=== PATIENT | male | born 1945 | race Caucasian/White ===

== ENCOUNTER 2017-09-01 13:08 | Inpatient (IN) | payer OTHER, MEDICARE ==
[~2017-09-01] VITALS: Ht 165.1 cm; Wt 77.5 kg
[~2017-09-01 13:08] MED LIST: ASPIRIN81 M2 PO; ATORVASTATIN CA80 MG PO; CILOSTAZOL50 MG PO; ENALAPRIL-HCTZ1 EACH PO; GEMFIBROZIL600 MG PO; GLUCOPHAGE500 MG PO; LANTUS 10100 UNITS/ SC; LEVAQUIN500 MG PO; METOPROLOL TAR100 MG PO; METOPROLOL TART50 MG PO; ROCEPHIN2 GM/50 ML IV
[2017-09-01 14:13] LABS: BASOPHIL (%) 0.3 % (0-1); EOSINOPHIL (%) 1.3 % (0-5); EOSINOPHIL COUNT 0.1 K/uL (0-0.3); HEMATOCRIT 49.5 % (38.0-50.0); HEMOGLOBIN 16.6 G/DL (12.5-16.6); IMMATURE GRANULOCYTE (%) 0.5 % (0.0-0.7); LYMPHOCYTE (%) 23.1 % (15-42); LYMPHOCYTE COUNT 2.5 K/uL (1.0-2.8); MCHC 33.5 G/DL (30.0-36.0); MCV 86.5 FL (86-99); MONOCYTE (%) 6.4 % (3-12); MONOCYTE COUNT 0.7 K/uL (0-0.8); NEUTROPHIL (%) 68.4 % (45-76); NEUTROPHIL COUNT 7.5 K/uL (1.8-6.4); PLATELET COUNT 263 K/uL (156-360); RBC DIS.WIDTH-CV 13.4 % (11.8-14.6); RBC DIS.WIDTH-SD 42.2 % (39-53); RED BLOOD COUNT 5.72 M/uL (4.00-5.50); WHITE BLOOD COUNT 10.9 K/uL (4.1-10.2)
[2017-09-01 14:21] LABS: CHLORIDE 104 mEq/L (99-109); POTASSIUM 3.9 mEq/L (3.7-5.4); SODIUM 139 mEq/L (136-147)
[2017-09-01 14:23] LABS: GLUCOSE 114 mg/dL (70-99)
[2017-09-01 14:27] LABS: CREATININE 1.3 mg/dL (0.6-1.3); GFR ESTIMATE (CALCULATED) 58 mL/min/ (58.99-99999)
[2017-09-01 14:28] LABS: UREA NITROGEN (BUN) 33 mg/dL (9-23)
[2017-09-01 14:32] LABS: INTER. NORMALIZED RATIO 1.1
[2017-09-01 14:35] LABS: PTT 35.3 SEC (25-37); TROP-I INTERPRETATION NEGATIVE; TROPONIN-I < 0.01 ng/mL (0.0-0.30)
[2017-09-01 16:19] LABS: APPEARANCE CLEAR ((CLEAR)); BILIRUBIN NEGATIVE; BLOOD NEGATIVE; COLOR YELLOW ((YELLOW)); GLUCOSE (STRIP) NEGATIVE; KETONES 20; LEUKOCYTES NEGATIVE; NITRITE NEGATIVE; PROTEIN (STRIP) NEGATIVE; SPECIFIC GRAVITY 1.027 (1.000-1.030); UCUL ADDED? NO; UROBILINOGEN 0.2 MG/DL (0.2-1.0)
[2017-09-01] MEDS ORDERED: AMLODIPINE BESY10 MG PO (22:29)
[2017-09-02] VITALS (8 sets, daily range): BP systolic 131–171; BP diastolic 56–86
[2017-09-02 05:46] LABS: HEMATOCRIT 46.5 % (38.0-50.0); HEMOGLOBIN 15.3 G/DL (12.5-16.6); MCH 28.5 PG (29.0-34.0); MCHC 32.9 G/DL (30.0-36.0); MCV 86.6 FL (86-99); PLATELET COUNT 266 K/uL (156-360); RBC DIS.WIDTH-CV 13.3 % (11.8-14.6); RBC DIS.WIDTH-SD 41.9 % (39-53); RED BLOOD COUNT 5.37 M/uL (4.00-5.50); WHITE BLOOD COUNT 9.6 K/uL (4.1-10.2)
[2017-09-02 06:18] LABS: CHLORIDE 103 MEQ/L (99-109); CREATININE 1.2 MG/DL (0.6-1.3); GFR ESTIMATE (CALCULATED) > 59 mL/min/ (58.99-99999); SODIUM 141 MEQ/L (136-147); UREA NITROGEN (BUN) 27 mg/dL (9-23)
[2017-09-02 06:22] LABS: GLUCOSE 82 mg/dL (70-99)
[2017-09-03 05:58] LABS: CHLORIDE 103 MEQ/L (99-109); CREATININE 1.3 MG/DL (0.6-1.3); GFR ESTIMATE (CALCULATED) 58 mL/min/ (58.99-99999); GLUCOSE 91 mg/dL (70-99); POTASSIUM 3.8 MEQ/L (3.7-5.4); SODIUM 141 MEQ/L (136-147); UREA NITROGEN (BUN) 29 mg/dL (9-23)
[2017-09-03 09:10] VITALS: BP 142/70
[2017-09-03 11:20] VITALS: BP 127/65
[2017-09-03 17:05] LABS: APPEARANCE CLEAR/COLORLESS; CSF TUBE NUMBER TUBE #3; RED CELL COUNT 0 /MM^3 (0-1); WHITE CELL COUNT 2 /MM^3 (0-5)
[2017-09-03 17:06] LABS: CSF EOSINOPHILS ND % (0-25); MONONUCLEAR WBC'S ND % (50-90); POLYNUCLEAR WBC'S ND % (0-3)
[2017-09-03 17:08] LABS: CSF PROTEIN 179 mg/dL (15-45)
[2017-09-03 17:13] LABS: GLUCOSE, CSF 92 mg/dL (40-80)
[2017-09-03 19:26] VITALS: BP 140/66
[2017-09-04 00:50] VITALS: BP 136/70
[2017-09-04 04:30] VITALS: BP 154/68
[2017-09-04 05:30] LABS: HEMATOCRIT 47.4 % (38.0-50.0); HEMOGLOBIN 15.7 G/DL (12.5-16.6); MCH 28.8 PG (29.0-34.0); MCHC 33.1 G/DL (30.0-36.0); MCV 86.8 FL (86-99); PLATELET COUNT 261 K/uL (156-360); RBC DIS.WIDTH-CV 13.5 % (11.8-14.6); RBC DIS.WIDTH-SD 41.8 % (39-53); RED BLOOD COUNT 5.46 M/uL (4.00-5.50); WHITE BLOOD COUNT 7.4 K/uL (4.1-10.2)
[2017-09-04 05:55] LABS: CHLORIDE 101 MEQ/L (99-109); CREATININE 1.2 MG/DL (0.6-1.3); GFR ESTIMATE (CALCULATED) > 59 mL/min/ (58.99-99999); GLUCOSE 127 mg/dL (70-99); POTASSIUM 3.7 MEQ/L (3.7-5.4); SODIUM 139 MEQ/L (136-147); UREA NITROGEN (BUN) 31 mg/dL (9-23)
[2017-09-04 08:38] VITALS: BP 160/77
[2017-09-04 11:37] VITALS: BP 130/67
[2017-09-04 15:50] VITALS: BP 131/64
[2017-09-04 19:00] VITALS: BP 146/69
[2017-09-05 00:55] VITALS: BP 138/77
[2017-09-05 04:08] VITALS: BP 143/81
[2017-09-05 07:50] VITALS: BP 141/74
[2017-09-05] MEDS ORDERED: LOPRESSOR25 MG PO (11:10)
[2017-09-05] MEDS ORDERED: LEVEMIR100 UNIT/2 SC (11:27)
[2017-09-05 12:07] VITALS: BP 130/64
[2017-09-05 12:17] VITALS: BP 137/79
== END 2017-09-05 14:12 | disposition home health service (06) | DRG 57 ==
LOC: EME 13:08 → ENRESERV 22:21 → 5WEST 22:21 → EDOF 22:21 → ENRESERV 22:33 → 5WEST 09-02 00:04
PROVIDERS: Emergency Medicine; Hospitalist; Physician Assistant
DX: G91.2 (Idiopathic) normal pressure hydrocephalus (principal); R27.0 Ataxia, unspecified; E11.649 Type 2 diabetes mellitus with hypoglycemia without coma; E11.69 Type 2 diabetes mellitus with other specified complication; I25.119 Atherosclerotic heart disease of native coronary artery with unspecified angina pectoris; E11.42 Type 2 diabetes mellitus with diabetic polyneuropathy; I10 Essential (primary) hypertension; N39.46 Mixed incontinence; E78.2 Mixed hyperlipidemia; K21.0 Gastro-esophageal reflux disease with esophagitis; M47.812 Spondylosis without myelopathy or radiculopathy, cervical region; M25.511 Pain in right shoulder; M81.0 Age-related osteoporosis without current pathological fracture; M25.512 Pain in left shoulder; I25.2 Old myocardial infarction; Z85.46 Personal history of malignant neoplasm of prostate; Z68.28 Body mass index [BMI] 28.0-28.9, adult; Z90.79 Acquired absence of other genital organ(s); Z90.49 Acquired absence of other specified parts of digestive tract; Z95.1 Presence of aortocoronary bypass graft; Z79.4 Long term (current) use of insulin; Z79.82 Long term (current) use of aspirin; Z80.0 Family history of malignant neoplasm of digestive organs; Z89.412 Acquired absence of left great toe
CPT/HCPCS: 62270; 70450; 71010; 71275; 72125; 73030; 77003; 80048; 81003; 82607; 82945; 82948; 84157; 84484; 85025; 85027; 85610; 85730; 87070; 87205; 87502; 88108; 89051; 93005; 97530 GP; 99281; 99285; G0103; G0378; G8978 GP CK; G8979 GP CI; J1650; J1815; J7030

== ENCOUNTER 2017-09-06 22:14 | Inpatient (IN) | payer OTHER, MEDICARE ==
[~2017-09-06] VITALS: Ht 165.1 cm; Wt 76.3 kg
[~2017-09-06 22:14] MED LIST changes: +AMLODIPINE BESY10 MG PO; +LEVEMIR100 UNIT/2 SC; +LOPRESSOR25 MG PO
[2017-09-06 23:49] LABS: BASOPHIL (%) 0.3 % (0-1); EOSINOPHIL (%) 0.7 % (0-5); EOSINOPHIL COUNT 0.1 K/uL (0-0.3); HEMATOCRIT 44.6 % (38.0-50.0); HEMOGLOBIN 15.6 G/DL (12.5-16.6); IMMATURE GRANULOCYTE (%) 0.3 % (0.0-0.7); LYMPHOCYTE (%) 21.4 % (15-42); LYMPHOCYTE COUNT 2.3 K/uL (1.0-2.8); MCH 29.7 PG (29.0-34.0); MCV 84.8 FL (86-99); MONOCYTE (%) 6.5 % (3-12); MONOCYTE COUNT 0.7 K/uL (0-0.8); NEUTROPHIL (%) 70.8 % (45-76); NEUTROPHIL COUNT 7.5 K/uL (1.8-6.4); PLATELET COUNT 276 K/uL (156-360); RBC DIS.WIDTH-CV 13.2 % (11.8-14.6); RBC DIS.WIDTH-SD 40.7 % (39-53); RED BLOOD COUNT 5.26 M/uL (4.00-5.50); WHITE BLOOD COUNT 10.6 K/uL (4.1-10.2)
[2017-09-07] LABS: CHLORIDE 101 mEq/L (99-109); POTASSIUM 3.5 mEq/L (3.7-5.4); SODIUM 136 mEq/L (136-147)
[2017-09-07 00:01] LABS: GLUCOSE 170 mg/dL (70-99)
[2017-09-07 00:05] LABS: CREATININE 1.2 mg/dL (0.6-1.3); GFR ESTIMATE (CALCULATED) > 59 mL/min/ (58.99-99999)
[2017-09-07 00:06] LABS: UREA NITROGEN (BUN) 36 mg/dL (9-23)
[2017-09-07 00:11] LABS: TROP-I INTERPRETATION NEGATIVE; TROPONIN-I 0.01 ng/mL (0.0-0.30)
[2017-09-07 03:35] VITALS: BP 145/76
[2017-09-07 08:00] VITALS: BP 118/65
[2017-09-07 08:31] LABS: HEMATOCRIT 43.5 % (38.0-50.0); HEMOGLOBIN 14.8 G/DL (12.5-16.6); MCH 29.1 PG (29.0-34.0); MCV 85.6 FL (86-99); PLATELET COUNT 268 K/uL (156-360); RBC DIS.WIDTH-CV 13.2 % (11.8-14.6); RBC DIS.WIDTH-SD 41.1 % (39-53); RED BLOOD COUNT 5.08 M/uL (4.00-5.50); WHITE BLOOD COUNT 9.4 K/uL (4.1-10.2)
[2017-09-07 08:51] LABS: CHLORIDE 103 MEQ/L (99-109); POTASSIUM 3.6 MEQ/L (3.7-5.4); SODIUM 140 MEQ/L (136-147)
[2017-09-07 09:06] LABS: CREATININE 1.1 MG/DL (0.6-1.3); GFR ESTIMATE (CALCULATED) > 59 mL/min/ (58.99-99999); UREA NITROGEN (BUN) 28 mg/dL (9-23)
[2017-09-07 09:07] LABS: GLUCOSE 113 mg/dL (70-99)
[2017-09-07 12:00] VITALS: BP 145/80; BP 164/69
[2017-09-07 16:00] VITALS: BP 145/71
[2017-09-07 19:25] VITALS: BP 137/62
[2017-09-07 23:45] VITALS: BP 118/58
[2017-09-08 03:48] VITALS: BP 133/71
[2017-09-08 06:39] LABS: HEMATOCRIT 44.2 % (38.0-50.0); HEMOGLOBIN 14.9 G/DL (12.5-16.6); MCHC 33.7 G/DL (30.0-36.0); MCV 86.2 FL (86-99); PLATELET COUNT 294 K/uL (156-360); RBC DIS.WIDTH-CV 13.2 % (11.8-14.6); RBC DIS.WIDTH-SD 40.7 % (39-53); RED BLOOD COUNT 5.13 M/uL (4.00-5.50); WHITE BLOOD COUNT 7.8 K/uL (4.1-10.2)
[2017-09-08 07:10] LABS: CHLORIDE 100 MEQ/L (99-109); CREATININE 1.1 MG/DL (0.6-1.3); GFR ESTIMATE (CALCULATED) > 59 mL/min/ (58.99-99999); GLUCOSE 102 mg/dL (70-99); SODIUM 138 MEQ/L (136-147); UREA NITROGEN (BUN) 24 mg/dL (9-23)
[2017-09-08 08:14] VITALS: BP 179/77
[2017-09-08 12:17] VITALS: BP 112/67
[2017-09-08] MEDS ORDERED: LANTUS 3 M100 UNITS1 SC (14:31)
[2017-09-08 16:14] VITALS: BP 125/67
[2017-09-08 19:14] VITALS: BP 123/60
[2017-09-08 23:29] VITALS: BP 121/64
[2017-09-09 03:39] VITALS: BP 111/64
[2017-09-09 07:01] LABS: BASOPHIL (%) 0.5 % (0-1); EOSINOPHIL (%) 1.8 % (0-5); EOSINOPHIL COUNT 0.1 K/uL (0-0.3); HEMATOCRIT 43.8 % (38.0-50.0); HEMOGLOBIN 14.8 G/DL (12.5-16.6); IMMATURE GRANULOCYTE (%) 0.4 % (0.0-0.7); LYMPHOCYTE (%) 35.7 % (15-42); LYMPHOCYTE COUNT 2.8 K/uL (1.0-2.8); MCH 28.8 PG (29.0-34.0); MCHC 33.8 G/DL (30.0-36.0); MCV 85.4 FL (86-99); MONOCYTE (%) 9.4 % (3-12); MONOCYTE COUNT 0.7 K/uL (0-0.8); NEUTROPHIL (%) 52.2 % (45-76); NEUTROPHIL COUNT 4.1 K/uL (1.8-6.4); PLATELET COUNT 299 K/uL (156-360); RBC DIS.WIDTH-CV 12.8 % (11.8-14.6); RBC DIS.WIDTH-SD 39.6 % (39-53); RED BLOOD COUNT 5.13 M/uL (4.00-5.50); WHITE BLOOD COUNT 7.8 K/uL (4.1-10.2)
[2017-09-09 07:22] LABS: CHLORIDE 98 MEQ/L (99-109); CREATININE 1.1 MG/DL (0.6-1.3); GFR ESTIMATE (CALCULATED) > 59 mL/min/ (58.99-99999); GLUCOSE 122 mg/dL (70-99); MAGNESIUM 1.7 mg/dl (1.3-2.7); POTASSIUM 3.7 MEQ/L (3.7-5.4); SODIUM 136 MEQ/L (136-147); UREA NITROGEN (BUN) 26 mg/dL (9-23)
[2017-09-09 07:44] VITALS: BP 109/53
[2017-09-09 12:05] VITALS: BP 109/53
[2017-09-09 16:10] VITALS: BP 136/63
[2017-09-09 20:01] VITALS: BP 137/61
[2017-09-10] VITALS (12 sets, daily range): BP systolic 111–155; BP diastolic 52–75
[2017-09-10 07:38] LABS: BASOPHIL (%) 0.1 % (0-1); EOSINOPHIL (%) 0 % (0-5); HEMOGLOBIN 15.6 G/DL (12.5-16.6); IMMATURE GRANULOCYTE (%) 0.4 % (0.0-0.7); LYMPHOCYTE (%) 15.6 % (15-42); LYMPHOCYTE COUNT 1.1 K/uL (1.0-2.8); MCH 28.9 PG (29.0-34.0); MCHC 33.9 G/DL (30.0-36.0); MCV 85.2 FL (86-99); MONOCYTE (%) 2.1 % (3-12); MONOCYTE COUNT 0.2 K/uL (0-0.8); NEUTROPHIL (%) 81.8 % (45-76); NEUTROPHIL COUNT 5.8 K/uL (1.8-6.4); PLATELET COUNT 327 K/uL (156-360); RBC DIS.WIDTH-SD 39.6 % (39-53); WHITE BLOOD COUNT 7.1 K/uL (4.1-10.2)
[2017-09-10 07:50] LABS: CHLORIDE 97 MEQ/L (99-109); CREATININE 1.1 MG/DL (0.6-1.3); GFR ESTIMATE (CALCULATED) > 59 mL/min/ (58.99-99999); GLUCOSE 157 mg/dL (70-99); POTASSIUM 4.5 MEQ/L (3.7-5.4); SODIUM 136 MEQ/L (136-147); UREA NITROGEN (BUN) 27 mg/dL (9-23)
[2017-09-10 22:16] LABS: TROP-I INTERPRETATION NEGATIVE; TROPONIN-I < 0.01 ng/mL (0.0-0.30)
[2017-09-11] VITALS (24 sets, daily range): BP systolic 94–147; BP diastolic 50–72
[2017-09-11 06:26] LABS: CHLORIDE 97 MEQ/L (99-109); CREATININE 1.5 MG/DL (0.6-1.3); GFR ESTIMATE (CALCULATED) 49 mL/min/ (58.99-99999); GLUCOSE 161 mg/dL (70-99); POTASSIUM 4.1 MEQ/L (3.7-5.4); SODIUM 133 MEQ/L (136-147); UREA NITROGEN (BUN) 44 mg/dL (9-23)
[2017-09-12] VITALS (12 sets, daily range): BP systolic 115–157; BP diastolic 55–76
[2017-09-12 04:54] LABS: CHLORIDE 104 mEq/L (99-109); POTASSIUM 4.2 mEq/L (3.7-5.4); SODIUM 134 mEq/L (136-147)
[2017-09-12 04:56] LABS: GLUCOSE 157 mg/dL (70-99)
[2017-09-12 05:00] LABS: CREATININE 1.6 mg/dL (0.6-1.3); GFR ESTIMATE (CALCULATED) 46 mL/min/ (58.99-99999)
[2017-09-12 05:01] LABS: UREA NITROGEN (BUN) 47 mg/dL (9-23)
[2017-09-13] VITALS (7 sets, daily range): BP systolic 135–179; BP diastolic 63–89
[2017-09-13 04:23] LABS: HEMATOCRIT 36.8 % (38.0-50.0); HEMOGLOBIN 12.7 G/DL (12.5-16.6); MCH 29.7 PG (29.0-34.0); MCHC 34.5 G/DL (30.0-36.0); PLATELET COUNT 270 K/uL (156-360); RBC DIS.WIDTH-CV 13.3 % (11.8-14.6); RBC DIS.WIDTH-SD 41.2 % (39-53); RED BLOOD COUNT 4.28 M/uL (4.00-5.50); WHITE BLOOD COUNT 14.9 K/uL (4.1-10.2)
[2017-09-14] VITALS (23 sets, daily range): BP systolic 146–180; BP diastolic 64–88
[2017-09-15] VITALS (17 sets, daily range): BP systolic 129–161; BP diastolic 56–78
[2017-09-16] VITALS (16 sets, daily range): BP systolic 117–159; BP diastolic 58–76
[2017-09-17] VITALS (7 sets, daily range): BP systolic 141–172; BP diastolic 66–81
[2017-09-18 03:33] VITALS: BP 134/65
[2017-09-18 08:30] VITALS: BP 150/70
[2017-09-18 12:09] VITALS: BP 137/65
[2017-09-18 16:00] VITALS: BP 137/70
[2017-09-18 19:31] VITALS: BP 150/70
[2017-09-19] VITALS (7 sets, daily range): BP systolic 126–156; BP diastolic 62–76
[2017-09-20 04:02] VITALS: BP 127/72
[2017-09-20 07:48] LABS: CHLORIDE 93 MEQ/L (99-109); CREATININE 0.8 MG/DL (0.6-1.3); GFR ESTIMATE (CALCULATED) > 59 mL/min/ (58.99-99999); GLUCOSE 223 mg/dL (70-99); POTASSIUM 4.2 MEQ/L (3.7-5.4); SODIUM 134 MEQ/L (136-147); UREA NITROGEN (BUN) 41 mg/dL (9-23)
[2017-09-20 08:30] VITALS: BP 167/75
[2017-09-20 12:34] VITALS: BP 133/63
[2017-09-20 16:30] VITALS: BP 124/82
[2017-09-20 23:54] VITALS: BP 134/63
[2017-09-21 05:13] VITALS: BP 131/68
[2017-09-21 07:40] VITALS: BP 151/72
[2017-09-21 12:29] VITALS: BP 153/74
[2017-09-21 19:56] VITALS: BP 142/64
[2017-09-21 23:31] VITALS: BP 108/56
[2017-09-22 03:58] VITALS: BP 128/65
[2017-09-22 06:20] LABS: CHLORIDE 94 MEQ/L (99-109); GFR ESTIMATE (CALCULATED) > 59 mL/min/ (58.99-99999); GLUCOSE 242 mg/dL (70-99); POTASSIUM 4.8 MEQ/L (3.7-5.4); SODIUM 130 MEQ/L (136-147); UREA NITROGEN (BUN) 32 mg/dL (9-23)
[2017-09-22 07:50] VITALS: BP 116/58
[2017-09-22] MEDS ORDERED: ENDOCET 5-3251 EACH PO (10:07)
[2017-09-22] MEDS ORDERED: BACLOFEN10 MG PO (10:07)
[2017-09-22 11:05] VITALS: BP 132/64
== END 2017-09-22 13:39 | DRG 29 ==
LOC: EME 22:14 → 5SOUTH 09-07 02:03 → 4WEST 09-07 02:03 → 2SOUTH 09-07 02:03 → EDOF 09-07 02:03 → ENRESERV 09-07 02:08 → 5SOUTH 09-07 03:15 → ENRESERV 09-10 13:27 → 5SOUTH 09-10 14:10 → ENRESERV 09-10 14:12 → 4WEST 09-10 14:19 → ENRESERV 09-11 13:13 → CANRESERV 09-11 14:59 → 4WEST 09-11 19:01 → 2SOUTH 09-13 09:03 → ENRESERV 09-13 21:30 → 4WEST 09-13 23:08 → ENRESERV 09-16 17:19 → 3EAST 09-16 20:45
PROVIDERS: Anesthesiology; Emergency Medicine; Hospitalist; Internal Medicine; Internal Medicine Critical Care Medicine; Neurological Surgery; Physician Assistant
DX: G91.2 (Idiopathic) normal pressure hydrocephalus (principal); I25.10 Atherosclerotic heart disease of native coronary artery without angina pectoris; R26.9 Unspecified abnormalities of gait and mobility; E78.2 Mixed hyperlipidemia; R27.0 Ataxia, unspecified; E11.42 Type 2 diabetes mellitus with diabetic polyneuropathy; N39.3 Stress incontinence (female) (male); K21.9 Gastro-esophageal reflux disease without esophagitis; E11.51 Type 2 diabetes mellitus with diabetic peripheral angiopathy without gangrene; M25.511 Pain in right shoulder; M25.512 Pain in left shoulder; Z79.4 Long term (current) use of insulin; Z79.82 Long term (current) use of aspirin; I25.2 Old myocardial infarction; Z95.1 Presence of aortocoronary bypass graft; Z90.79 Acquired absence of other genital organ(s); Z85.46 Personal history of malignant neoplasm of prostate; Z80.0 Family history of malignant neoplasm of digestive organs; Z89.412 Acquired absence of left great toe; F43.21 Adjustment disorder with depressed mood; R00.1 Bradycardia, unspecified; Z79.899 Other long term (current) drug therapy; Z90.49 Acquired absence of other specified parts of digestive tract; M48.02 Spinal stenosis, cervical region; T85.192A Other mechanical complication of implanted electronic neurostimulator of spinal cord electrode (lead), initial encounter; G95.9 Disease of spinal cord, unspecified
CPT/HCPCS: 62302; 72020; 72040; 72126; 72156; 72170; 74018; 74176; 76000; 80048; 82948; 83735; 84484; 84520; 85025; 85027; 85651; 86140; 86850; 86900; 86901; 87641; 88305; 92523 GN; 93005; 94799; 97530 GO; 97530 GP; 99281; 99285; C1713; J0131; J0330; J0461; J0690; J1100; J1170; J1644; J1815; J2250; J2270; J2405; J2710; J2765; J3010; J7030; J7042; J8540

== ENCOUNTER 2017-10-21 15:13 | Inpatient (IN) | payer OTHER, MEDICARE ==
[~2017-10-21] VITALS: Ht 165.1 cm; Wt 75.7 kg
[~2017-10-21 15:13] MED LIST changes: +BACLOFEN10 MG PO; +ENDOCET 5-3251 EACH PO; +LANTUS 3 M100 UNITS1 SC
[2017-10-21 16:04] LABS: BASOPHIL (%) 0.2 % (0-1); EOSINOPHIL (%) 0.2 % (0-5); HEMATOCRIT 35.9 % (38.0-50.0); HEMOGLOBIN 12.7 G/DL (12.5-16.6); IMMATURE GRANULOCYTE (%) 1.5 % (0.0-0.7); LYMPHOCYTE (%) 12.1 % (15-42); LYMPHOCYTE COUNT 1.7 K/uL (1.0-2.8); MCHC 35.4 G/DL (30.0-36.0); MCV 84.9 FL (86-99); MONOCYTE (%) 11.1 % (3-12); MONOCYTE COUNT 1.5 K/uL (0-0.8); NEUTROPHIL (%) 74.9 % (45-76); NEUTROPHIL COUNT 10.3 K/uL (1.8-6.4); PLATELET COUNT 478 K/uL (156-360); RBC DIS.WIDTH-CV 14.6 % (11.8-14.6); RBC DIS.WIDTH-SD 45.2 % (39-53); RED BLOOD COUNT 4.23 M/uL (4.00-5.50); WHITE BLOOD COUNT 13.7 K/uL (4.1-10.2)
[2017-10-21 16:13] LABS: INTER. NORMALIZED RATIO 1.2
[2017-10-21 16:15] LABS: PTT 28.6 SEC (25-37)
[2017-10-21 16:32] LABS: TROP-I INTERPRETATION NEGATIVE; TROPONIN-I < 0.01 ng/mL (0.0-0.30)
[2017-10-21 16:34] LABS: CK-MB 6.3 ng/mL (0.0-4.9)
[2017-10-21 17:31] LABS: ALBUMIN 3.5 G/DL (3.2-4.8); ALKALINE PHOSPHATASE 90 IU/L (3-129); ALT (GPT) 30 IU/L (3-49); AST (GOT) 26 IU/L (2-34); CHLORIDE 89 MEQ/L (99-109); CKMB RELATIVE INDEX 0.9 (0.0-3.9); CREATINE KINASE 737 IU/L (1-294); CREATININE 1.1 MG/DL (0.6-1.3); GFR ESTIMATE (CALCULATED) > 59 mL/min/ (58.99-99999); POTASSIUM 4.4 MEQ/L (3.7-5.4); TOTAL BILIRUBIN 0.5 MG/DL (0.0-1.0); TOTAL CK 737 IU/L (1-294); UREA NITROGEN (BUN) 52 mg/dL (9-23)
[2017-10-21 17:32] LABS: GLUCOSE 231 mg/dL (70-99); SODIUM 118 MEQ/L (136-147)
[2017-10-21 18:18] LABS: APPEARANCE CLOUDY ((CLEAR)); BILIRUBIN NEGATIVE; BLOOD LARGE; COLOR YELLOW ((YELLOW)); GLUCOSE (STRIP) NEGATIVE; KETONES NEGATIVE; LEUKOCYTES LARGE; NITRITE NEGATIVE; PROTEIN (STRIP) 30; SPECIFIC GRAVITY 1.019 (1.000-1.030); UROBILINOGEN 0.2 MG/DL (0.2-1.0)
[2017-10-21 18:27] LABS: BACTERIA RARE /HPF; CALCIUM OXALATE CRYSTALS 2+ /HPF; EPITHELIAL CELLS RARE /HPF; MUCUS TRACE /LPF; RED BLOOD CELLS 40-50 /HPF (0-5); UCUL ADDED? YES; WHITE BLOOD CELLS TNTC /HPF (0-5)
[2017-10-21] MEDS ORDERED: LEXAPRO10 MG PO (20:31)
[2017-10-21] MEDS ORDERED: VITAMIN D31000 UNI2 PO (20:31)
[2017-10-21] MEDS ORDERED: MICROZIDE12.5 M1 PO (20:32)
[2017-10-21] MEDS ORDERED: LEVEMIR100 UNIT/2 SC (20:33)
[2017-10-21] MEDS ORDERED: ZESTRIL10 MG PO (20:34)
[2017-10-21] MEDS ORDERED: LOVENOX40 MG/0.4 SC (20:34)
[2017-10-21] MEDS ORDERED: GLUCOPHAGE500 MG PO (20:35)
[2017-10-21] MEDS ORDERED: PRILOSEC20 MG PO (20:36)
[2017-10-21] MEDS ORDERED: MIRTAZAPINE7.5 MG PO (20:36)
[2017-10-21] MEDS ORDERED: SENNA PLUS TAB1 EACH PO (20:37)
[2017-10-21] MEDS ORDERED: ACIDOPHILUS1 EAC3 PO (20:38)
[2017-10-21] MEDS ORDERED: MUCUS ER600 MG PO (20:39)
[2017-10-21] MEDS ORDERED: MEGACE 40 MG40 MG/ML PO (20:39)
[2017-10-21] MEDS ORDERED: LOPRESSOR25 MG PO (20:40)
[2017-10-21] MEDS ORDERED: ZEASORB-AF70 G1 TP (20:41)
[2017-10-21] MEDS ORDERED: K-DUR10 MEQ PO (20:41)
[2017-10-21] MEDS ORDERED: NEURONTIN100 MG PO (20:42)
[2017-10-21] MEDS ORDERED: NYSTATIN100000 UN1 PO (20:43)
[2017-10-21] MEDS ORDERED: LIORESAL10 MG PO (20:43)
[2017-10-21] MEDS ORDERED: MILK OF MAGN PO (20:44)
[2017-10-21] MEDS ORDERED: DULCOLAX10 MG PR (20:44)
[2017-10-21] MEDS ORDERED: TYLENOL EXTRA500 MG PO (20:44)
[2017-10-21] MEDS ORDERED: PERCOCET 5/31 TABLET PO ×2 (20:45→20:46)
[2017-10-21] MEDS ORDERED: MIRALAX17 GM PO (20:45)
[2017-10-21] MEDS ORDERED: PROMETHAZINE12.5 M1 PO (20:47)
[2017-10-21 23:43] VITALS: BP 135/64
[2017-10-22 01:29] LABS: CHLORIDE 94 mEq/L (99-109); POTASSIUM 4.2 mEq/L (3.7-5.4)
[2017-10-22 01:35] LABS: CREATININE 0.8 mg/dL (0.6-1.3); GFR ESTIMATE (CALCULATED) > 59 mL/min/ (58.99-99999)
[2017-10-22 01:36] LABS: GLUCOSE 110 mg/dL (70-99); SODIUM 125 mEq/L (136-147); UREA NITROGEN (BUN) 38 mg/dL (9-23)
[2017-10-22 03:27] VITALS: BP 110/58
[2017-10-22 06:38] LABS: HEMATOCRIT 35.5 % (38.0-50.0); HEMOGLOBIN 12.4 G/DL (12.5-16.6); MCH 30.2 PG (29.0-34.0); MCHC 34.9 G/DL (30.0-36.0); MCV 86.4 FL (86-99); PLATELET COUNT 418 K/uL (156-360); RBC DIS.WIDTH-SD 47.3 % (39-53); RED BLOOD COUNT 4.11 M/uL (4.00-5.50); WHITE BLOOD COUNT 11.4 K/uL (4.1-10.2)
[2017-10-22 07:15] LABS: CHLORIDE 97 MEQ/L (99-109); CREATININE 0.8 MG/DL (0.6-1.3); GFR ESTIMATE (CALCULATED) > 59 mL/min/ (58.99-99999); GLUCOSE 105 mg/dL (70-99); POTASSIUM 4.1 MEQ/L (3.7-5.4); SODIUM 126 MEQ/L (136-147); UREA NITROGEN (BUN) 34 mg/dL (9-23)
[2017-10-22 08:30] VITALS: BP 122/58
[2017-10-22 09:53] LABS: CHLORIDE 97 MEQ/L (99-109); CREATININE 0.8 MG/DL (0.6-1.3); GFR ESTIMATE (CALCULATED) > 59 mL/min/ (58.99-99999); GLUCOSE 105 mg/dL (70-99); POTASSIUM 4.3 MEQ/L (3.7-5.4); SODIUM 127 MEQ/L (136-147); UREA NITROGEN (BUN) 32 mg/dL (9-23)
[2017-10-22 12:08] VITALS: BP 119/62
[2017-10-22 12:57] LABS: CHLORIDE 97 MEQ/L (99-109); CREATININE 0.7 MG/DL (0.6-1.3); GFR ESTIMATE (CALCULATED) > 59 mL/min/ (58.99-99999); GLUCOSE 143 mg/dL (70-99); POTASSIUM 4.3 MEQ/L (3.7-5.4); SODIUM 126 MEQ/L (136-147); UREA NITROGEN (BUN) 32 mg/dL (9-23)
[2017-10-22 17:20] VITALS: BP 118/55
[2017-10-22 18:08] LABS: CHLORIDE 98 MEQ/L (99-109); CREATININE 0.8 MG/DL (0.6-1.3); GFR ESTIMATE (CALCULATED) > 59 mL/min/ (58.99-99999); GLUCOSE 159 mg/dL (70-99); POTASSIUM 4.4 MEQ/L (3.7-5.4); SODIUM 125 MEQ/L (136-147); UREA NITROGEN (BUN) 30 mg/dL (9-23)
[2017-10-22 20:13] VITALS: BP 123/68
[2017-10-23 03:37] VITALS: BP 117/57
[2017-10-23 05:44] LABS: CHLORIDE 101 MEQ/L (99-109); CREATININE 0.8 MG/DL (0.6-1.3); GFR ESTIMATE (CALCULATED) > 59 mL/min/ (58.99-99999); POTASSIUM 4.2 MEQ/L (3.7-5.4); SODIUM 129 MEQ/L (136-147); UREA NITROGEN (BUN) 27 mg/dL (9-23)
[2017-10-23 05:50] LABS: GLUCOSE 101 mg/dL (70-99)
[2017-10-23 07:42] VITALS: BP 131/63
[2017-10-23 11:27] VITALS: BP 127/64
[2017-10-23 16:30] VITALS: BP 117/57
[2017-10-23 19:45] VITALS: BP 134/66
[2017-10-23 23:17] VITALS: BP 108/58
[2017-10-24 04:22] VITALS: BP 128/62
[2017-10-24 06:15] LABS: CHLORIDE 104 MEQ/L (99-109); CREATININE 0.7 MG/DL (0.6-1.3); GFR ESTIMATE (CALCULATED) > 59 mL/min/ (58.99-99999); GLUCOSE 101 mg/dL (70-99); POTASSIUM 4.5 MEQ/L (3.7-5.4); SODIUM 134 MEQ/L (136-147); UREA NITROGEN (BUN) 21 mg/dL (9-23)
[2017-10-24 07:30] VITALS: BP 146/79
[2017-10-24 12:03] VITALS: BP 150/82
[2017-10-24 14:22] LABS: CREATINE KINASE 127 IU/L (1-294)
[2017-10-24 15:58] VITALS: BP 127/62
[2017-10-24 19:08] LABS: CHLORIDE 103 MEQ/L (99-109); POTASSIUM 4.3 MEQ/L (3.7-5.4); SODIUM 133 MEQ/L (136-147)
[2017-10-24 19:14] LABS: CREATININE 0.7 MG/DL (0.6-1.3); GFR ESTIMATE (CALCULATED) > 59 mL/min/ (58.99-99999); UREA NITROGEN (BUN) 18 mg/dL (9-23)
[2017-10-24 19:20] LABS: GLUCOSE 164 mg/dL (70-99)
[2017-10-24 19:26] VITALS: BP 144/69
[2017-10-24 23:11] VITALS: BP 144/60
[2017-10-25 04:23] VITALS: BP 113/67
[2017-10-25 04:48] LABS: HEMATOCRIT 37.6 % (38.0-50.0); MCH 30.2 PG (29.0-34.0); MCHC 34.6 G/DL (30.0-36.0); MCV 87.4 FL (86-99); PLATELET COUNT 387 K/uL (156-360); RBC DIS.WIDTH-CV 15.4 % (11.8-14.6); RBC DIS.WIDTH-SD 49.3 % (39-53); WHITE BLOOD COUNT 12.3 K/uL (4.1-10.2)
[2017-10-25 06:17] LABS: CHLORIDE 102 MEQ/L (99-109); CREATININE 0.7 MG/DL (0.6-1.3); GFR ESTIMATE (CALCULATED) > 59 mL/min/ (58.99-99999); GLUCOSE 91 mg/dL (70-99); POTASSIUM 4.6 MEQ/L (3.7-5.4); SODIUM 136 MEQ/L (136-147); UREA NITROGEN (BUN) 19 mg/dL (9-23)
[2017-10-25 08:05] VITALS: BP 137/72
[2017-10-25 12:01] VITALS: BP 106/62
[2017-10-25 16:14] VITALS: BP 114/56
[2017-10-25 19:55] VITALS: BP 120/59
[2017-10-26 00:02] VITALS: BP 104/65
[2017-10-26 05:30] LABS: HEMATOCRIT 36.7 % (38.0-50.0); HEMOGLOBIN 12.3 G/DL (12.5-16.6); MCH 29.4 PG (29.0-34.0); MCHC 33.5 G/DL (30.0-36.0); MCV 87.6 FL (86-99); PLATELET COUNT 370 K/uL (156-360); RBC DIS.WIDTH-CV 15.2 % (11.8-14.6); RBC DIS.WIDTH-SD 48.7 % (39-53); RED BLOOD COUNT 4.19 M/uL (4.00-5.50); WHITE BLOOD COUNT 12.2 K/uL (4.1-10.2)
[2017-10-26 06:03] LABS: CHLORIDE 102 MEQ/L (99-109); CREATININE 0.7 MG/DL (0.6-1.3); GFR ESTIMATE (CALCULATED) > 59 mL/min/ (58.99-99999); GLUCOSE 93 mg/dL (70-99); POTASSIUM 4.1 MEQ/L (3.7-5.4); SODIUM 132 MEQ/L (136-147); UREA NITROGEN (BUN) 19 mg/dL (9-23)
[2017-10-26 08:21] VITALS: BP 130/66
[2017-10-26 16:20] VITALS: BP 115/57
[2017-10-26 23:33] VITALS: BP 106/59
[2017-10-27 08:37] VITALS: BP 112/67
[2017-10-27] MEDS ORDERED: CYANOCOBAL1000 MCG/2 SC (12:19)
[2017-10-27] MEDS ORDERED: PERCOCET 5/31 TABLET PO (13:46)
== END 2017-10-27 15:07 | DRG 641 ==
LOC: EME 15:13 → 3EAST 19:37 → EDOF 19:37 → ENRESERV 19:39 → 3EAST 23:09
PROVIDERS: Emergency Medicine; Hospitalist; Internal Medicine; Internal Medicine Nephrology; Physician Assistant
PROC: 0HD6XZZ Extraction of Back Skin, External Approach (ICD-10-PCS; principal; 2017-10-23)
DX: E87.1 Hypo-osmolality and hyponatremia (principal); G82.20 Paraplegia, unspecified; N39.0 Urinary tract infection, site not specified; N17.9 Acute kidney failure, unspecified; M62.82 Rhabdomyolysis; G91.2 (Idiopathic) normal pressure hydrocephalus; T81.89XA Other complications of procedures, not elsewhere classified, initial encounter; T81.31XA Disruption of external operation (surgical) wound, not elsewhere classified, initial encounter; L89.150 Pressure ulcer of sacral region, unstageable; E11.42 Type 2 diabetes mellitus with diabetic polyneuropathy; E78.5 Hyperlipidemia, unspecified; E86.0 Dehydration; E86.1 Hypovolemia; T50.2X5A Adverse effect of carbonic-anhydrase inhibitors, benzothiadiazides and other diuretics, initial encounter; I10 Essential (primary) hypertension; I25.10 Atherosclerotic heart disease of native coronary artery without angina pectoris; K21.9 Gastro-esophageal reflux disease without esophagitis; E78.00 Pure hypercholesterolemia, unspecified; Y92.129 Unspecified place in nursing home as the place of occurrence of the external cause; I25.2 Old myocardial infarction; Z95.1 Presence of aortocoronary bypass graft; Z90.49 Acquired absence of other specified parts of digestive tract; Z90.79 Acquired absence of other genital organ(s); Z85.46 Personal history of malignant neoplasm of prostate; Z79.84 Long term (current) use of oral hypoglycemic drugs; Z80.0 Family history of malignant neoplasm of digestive organs; Z82.49 Family history of ischemic heart disease and other diseases of the circulatory system; Z74.01 Bed confinement status; Z99.3 Dependence on wheelchair
CPT/HCPCS: 70450; 71045; 80048; 80048 91; 80053; 81003; 82550; 82553; 82607; 82948; 83605; 83930; 83935; 84300; 84425 90; 84484; 85025 91; 85027; 85610; 85730; 87040; 87086; 87502; 93005; 99281; 99285; J0696; J1644; J3420; J7030

== ENCOUNTER → 2017-11-06 | Outpatient (CLI) | payer OTHER, MEDICARE ==
[~2017-11-06] MED LIST changes: +ACIDOPHILUS1 EAC3 PO; +CYANOCOBAL1000 MCG/2 SC; +DULCOLAX10 MG PR; +K-DUR10 MEQ PO; +LEXAPRO10 MG PO; +LIORESAL10 MG PO; +LOVENOX40 MG/0.4 SC; +MEGACE 40 MG40 MG/ML PO; +MICROZIDE12.5 M1 PO; +MILK OF MAGN PO; +MIRALAX17 GM PO; +MIRTAZAPINE7.5 MG PO; +MUCUS ER600 MG PO; +NEURONTIN100 MG PO; +NYSTATIN100000 UN1 PO; +PERCOCET 5/31 TABLET PO; +PRILOSEC20 MG PO; +PROMETHAZINE12.5 M1 PO; +SENNA PLUS TAB1 EACH PO; +TYLENOL EXTRA500 MG PO; +VITAMIN D31000 UNI2 PO; +ZEASORB-AF70 G1 TP; +ZESTRIL10 MG PO
== END | disposition home or self-care (01) ==
LOC: RAD 09:00
DX: M50.221 Other cervical disc displacement at C4-C5 level (principal); Z98.890 Other specified postprocedural states
CPT/HCPCS: 72125

== ENCOUNTER 2017-11-14 19:33 | Inpatient (IN) | payer OTHER, MEDICARE ==
[~2017-11-14] VITALS: Ht 165.1 cm; Wt 64.0 kg
[2017-11-14 20:32] LABS: HEMATOCRIT 39.1 % (38.0-50.0); HEMOGLOBIN 13.4 G/DL (12.5-16.6); MCH 30.5 PG (29.0-34.0); MCHC 34.3 G/DL (30.0-36.0); MCV 89.1 FL (86-99); PLATELET COUNT 325 K/uL (156-360); RBC DIS.WIDTH-SD 52.7 % (39-53); RED BLOOD COUNT 4.39 M/uL (4.00-5.50); WHITE BLOOD COUNT 13.9 K/uL (4.1-10.2)
[2017-11-14 20:40] LABS: CHLORIDE 105 mEq/L (99-109); POTASSIUM 4.6 mEq/L (3.7-5.4); SODIUM 140 mEq/L (136-147)
[2017-11-14 20:42] LABS: GLUCOSE 126 mg/dL (70-99)
[2017-11-14 20:44] LABS: BASE EXCESS -0.9 mEq/L (-3 to +3); BICARBONATE 21.6 mEq/L (22-26); CARBOXY HGB 1.2 % (0-5); METHEMOGLOBIN 1.3 % (0-1.5); PCO2 29 mm Hg (35-45); PO2 99 mm Hg (80-100); pH 7.48 (7.35-7.45)
[2017-11-14 20:46] LABS: CREATININE 0.9 mg/dL (0.6-1.3); GFR ESTIMATE (CALCULATED) > 59 mL/min/ (58.99-99999)
[2017-11-14 20:47] LABS: UREA NITROGEN (BUN) 41 mg/dL (9-23)
[2017-11-14 20:55] LABS: COMMENTS - BLOOD GASES A+C+; DEVICE RA; SITE LR
[2017-11-14 20:57] LABS: BASOPHIL (%) 0.2 % (0-1); EOSINOPHIL (%) 0.7 % (0-5); EOSINOPHIL COUNT 0.1 K/uL (0-0.3); LYMPHOCYTE COUNT 2.2 K/uL (1.0-2.8); MONOCYTE (%) 8.6 % (3-12); MONOCYTE COUNT 1.2 K/uL (0-0.8); NEUTROPHIL (%) 73.5 % (45-76); NEUTROPHIL COUNT 10.1 K/uL (1.8-6.4)
[2017-11-14 21:01] LABS: INTER. NORMALIZED RATIO 1.2
[2017-11-14 21:07] LABS: ALBUMIN 3.7 g/dL (3.2-4.8)
[2017-11-14 21:08] LABS: MAGNESIUM 1.6 mg/dL (1.3-2.7)
[2017-11-14 21:10] LABS: TOTAL PROTEIN 6.6 g/dL (6.4-8.3)
[2017-11-14 21:11] LABS: TOTAL BILIRUBIN 0.6 mg/dL (0.0-1.0)
[2017-11-14 21:12] LABS: ALKALINE PHOSPHATASE 108 IU/L (3-129)
[2017-11-14 21:15] LABS: AST (GOT) 36 IU/L (2-34); DIRECT BILIRUBIN 0.3 mg/dL (0.0-0.3)
[2017-11-14 21:16] LABS: ALT (GPT) 31 IU/L (3-49); LIPASE 15 U/L (1.0-51.0)
[2017-11-14 21:22] LABS: TROP-I INTERPRETATION NEGATIVE; TROPONIN-I < 0.01 ng/mL (0.0-0.30)
[2017-11-14] MEDS ORDERED: CYANOCOBAL1000 MCG/2 IM (21:57)
[2017-11-14] MEDS ORDERED: FOLIC ACID1 MG PO (22:03)
[2017-11-14] MEDS ORDERED: MELATONIN1 MG PO (22:05)
[2017-11-14] MEDS ORDERED: OMEPRAZOLE20 M2 PO (22:08)
[2017-11-14] MEDS ORDERED: TRAZODONE HCL50 MG PO (22:21)
[2017-11-14] MEDS ORDERED: ONDANSETRON HCL4 MG PO (22:24)
[2017-11-15 05:08] VITALS: BP 171/79
[2017-11-15 07:10] VITALS: BP 114/65
[2017-11-15 11:34] VITALS: BP 112/63
[2017-11-15 12:07] LABS: APPEARANCE CLOUDY ((CLEAR)); BILIRUBIN NEGATIVE; BLOOD MODERATE; GLUCOSE (STRIP) 50; KETONES NEGATIVE; LEUKOCYTES MODERATE; NITRITE NEGATIVE; PROTEIN (STRIP) 100; SPECIFIC GRAVITY 1.018 (1.000-1.030); UROBILINOGEN 0.2 MG/DL (0.2-1.0)
[2017-11-15 12:12] LABS: COLOR RED ((YELLOW))
[2017-11-15 12:21] LABS: RED BLOOD CELLS TNTC /HPF (0-5)
[2017-11-15 12:23] LABS: UCUL ADDED? YES; WHITE BLOOD CELLS TNTC /HPF (0-5)
[2017-11-15 15:06] VITALS: BP 113/60
[2017-11-15 22:36] VITALS: BP 138/73
[2017-11-16 03:49] VITALS: BP 102/59
[2017-11-16 06:35] LABS: HEMATOCRIT 29.9 % (38.0-50.0); MCH 30.4 PG (29.0-34.0); MCHC 34.1 G/DL (30.0-36.0); MCV 89.3 FL (86-99); PLATELET COUNT 250 K/uL (156-360); RBC DIS.WIDTH-SD 52.8 % (39-53); WHITE BLOOD COUNT 9.6 K/uL (4.1-10.2)
[2017-11-16 06:51] LABS: GFR ESTIMATE (CALCULATED) > 59 mL/min/ (58.99-99999)
[2017-11-16 07:20] LABS: HEMOGLOBIN 10.2 G/DL (12.5-16.6); RED BLOOD COUNT 3.35 M/uL (4.00-5.50)
[2017-11-16 07:33] LABS: CHLORIDE 110 MEQ/L (99-109); CREATININE 0.7 MG/DL (0.6-1.3); GLUCOSE 58 mg/dL (70-99); POTASSIUM 2.8 MEQ/L (3.7-5.4); SODIUM 141 MEQ/L (136-147); UREA NITROGEN (BUN) 18 mg/dL (9-23)
[2017-11-16 08:07] VITALS: BP 142/68
[2017-11-16 11:22] LABS: MAGNESIUM 1.4 mg/dl (1.3-2.7); PHOSPHORUS 2.1 mg/dL (2.5-4.9)
[2017-11-16 11:50] VITALS: BP 124/64
[2017-11-16 12:18] LABS: CHLORIDE 110 MEQ/L (99-109); CREATININE 0.6 MG/DL (0.6-1.3); GFR ESTIMATE (CALCULATED) > 59 mL/min/ (58.99-99999); POTASSIUM 2.8 MEQ/L (3.7-5.4); SODIUM 141 MEQ/L (136-147); UREA NITROGEN (BUN) 15 mg/dL (9-23)
[2017-11-16 12:22] LABS: GLUCOSE 104 mg/dL (70-99)
[2017-11-16 17:21] VITALS: BP 107/59
[2017-11-16 17:51] LABS: CHLORIDE 110 MEQ/L (99-109); CREATININE 0.5 MG/DL (0.6-1.3); GFR ESTIMATE (CALCULATED) > 59 mL/min/ (58.99-99999); GLUCOSE 63 mg/dL (70-99); POTASSIUM 3.6 MEQ/L (3.7-5.4); SODIUM 141 MEQ/L (136-147); UREA NITROGEN (BUN) 14 mg/dL (9-23)
[2017-11-16 19:20] VITALS: BP 107/99
[2017-11-16 23:46] VITALS: BP 142/62
[2017-11-17 04:16] VITALS: BP 124/63
[2017-11-17 05:58] LABS: BASOPHIL (%) 0.4 % (0-1); EOSINOPHIL (%) 2.4 % (0-5); EOSINOPHIL COUNT 0.2 K/uL (0-0.3); HEMATOCRIT 30.5 % (38.0-50.0); IMMATURE GRANULOCYTE (%) 1.1 % (0.0-0.7); LYMPHOCYTE (%) 19.3 % (15-42); LYMPHOCYTE COUNT 1.9 K/uL (1.0-2.8); MCH 29.6 PG (29.0-34.0); MCHC 32.8 G/DL (30.0-36.0); MCV 90.2 FL (86-99); MONOCYTE (%) 7.2 % (3-12); MONOCYTE COUNT 0.7 K/uL (0-0.8); NEUTROPHIL (%) 69.6 % (45-76); NEUTROPHIL COUNT 6.7 K/uL (1.8-6.4); PLATELET COUNT 249 K/uL (156-360); RBC DIS.WIDTH-CV 16.4 % (11.8-14.6); RBC DIS.WIDTH-SD 54.4 % (39-53); RED BLOOD COUNT 3.38 M/uL (4.00-5.50); WHITE BLOOD COUNT 9.6 K/uL (4.1-10.2)
[2017-11-17 06:30] LABS: CHLORIDE 112 MEQ/L (99-109); CREATINE KINASE 114 IU/L (1-294); CREATININE 0.6 MG/DL (0.6-1.3); GFR ESTIMATE (CALCULATED) > 59 mL/min/ (58.99-99999); GLUCOSE 73 mg/dL (70-99); MAGNESIUM 1.5 mg/dl (1.3-2.7); POTASSIUM 3.6 MEQ/L (3.7-5.4); SODIUM 140 MEQ/L (136-147); UREA NITROGEN (BUN) 12 mg/dL (9-23)
[2017-11-17 07:57] VITALS: BP 129/70
[2017-11-17 12:13] VITALS: BP 121/64
[2017-11-17 20:18] VITALS: BP 154/72
[2017-11-17 23:38] VITALS: BP 130/73
[2017-11-18 03:29] VITALS: BP 125/59
[2017-11-18 07:38] VITALS: BP 133/74
[2017-11-18 08:50] LABS: BASOPHIL (%) 0.5 % (0-1); BASOPHIL COUNT 0.1 K/uL (0-0.1); EOSINOPHIL (%) 1.8 % (0-5); EOSINOPHIL COUNT 0.2 K/uL (0-0.3); HEMATOCRIT 32.9 % (38.0-50.0); HEMOGLOBIN 11.2 G/DL (12.5-16.6); IMMATURE GRANULOCYTE (%) 0.6 % (0.0-0.7); LYMPHOCYTE (%) 18.2 % (15-42); LYMPHOCYTE COUNT 1.7 K/uL (1.0-2.8); MCH 30.4 PG (29.0-34.0); MCV 89.2 FL (86-99); MONOCYTE (%) 7.3 % (3-12); MONOCYTE COUNT 0.7 K/uL (0-0.8); NEUTROPHIL (%) 71.6 % (45-76); NEUTROPHIL COUNT 6.8 K/uL (1.8-6.4); PLATELET COUNT 288 K/uL (156-360); RBC DIS.WIDTH-CV 16.4 % (11.8-14.6); RBC DIS.WIDTH-SD 54.6 % (39-53); RED BLOOD COUNT 3.69 M/uL (4.00-5.50); WHITE BLOOD COUNT 9.4 K/uL (4.1-10.2)
[2017-11-18 09:21] LABS: CHLORIDE 112 MEQ/L (99-109); CREATININE 0.6 MG/DL (0.6-1.3); GFR ESTIMATE (CALCULATED) > 59 mL/min/ (58.99-99999); GLUCOSE 87 mg/dL (70-99); POTASSIUM 3.6 MEQ/L (3.7-5.4); SODIUM 142 MEQ/L (136-147); UREA NITROGEN (BUN) 11 mg/dL (9-23)
[2017-11-18 12:10] VITALS: BP 112/69
[2017-11-18] MEDS ORDERED: MAG-OXIDE400 MG PO (12:22)
[2017-11-18] MEDS ORDERED: LEVEMIR100 UNIT/2 SC ×2 (12:22→12:23)
[2017-11-18] MEDS ORDERED: DRONABINOL2.5 MG PO (12:22)
[2017-11-18] MEDS ORDERED: ZYVOX600 MG PO (12:28)
[2017-11-18 16:26] VITALS: BP 135/62
== END 2017-11-18 18:30 | DRG 871 ==
LOC: EME → EDBD 19:33 → 5SOUTH 11-15 01:19 → EDOF 11-15 01:19 → ENRESERV 11-15 01:25 → EDOF 11-15 03:02 → 5SOUTH 11-15 03:02 → ENRESERV 11-15 03:08 → 5SOUTH 11-15 04:05
PROVIDERS: Emergency Medicine; Internal Medicine; Physician Assistant
DX: A41.9 Sepsis, unspecified organism (principal); N39.0 Urinary tract infection, site not specified; G93.41 Metabolic encephalopathy; G82.50 Quadriplegia, unspecified; N31.9 Neuromuscular dysfunction of bladder, unspecified; N32.0 Bladder-neck obstruction; N35.9 Urethral stricture, unspecified; L89.150 Pressure ulcer of sacral region, unstageable; T81.89XA Other complications of procedures, not elsewhere classified, initial encounter; E87.2 Acidosis; E87.6 Hypokalemia; E86.0 Dehydration; E83.42 Hypomagnesemia; E11.649 Type 2 diabetes mellitus with hypoglycemia without coma; R13.10 Dysphagia, unspecified; M86.672 Other chronic osteomyelitis, left ankle and foot; M81.0 Age-related osteoporosis without current pathological fracture; I10 Essential (primary) hypertension; E78.5 Hyperlipidemia, unspecified; I25.10 Atherosclerotic heart disease of native coronary artery without angina pectoris; I25.2 Old myocardial infarction; E11.42 Type 2 diabetes mellitus with diabetic polyneuropathy; N39.41 Urge incontinence; R55 Syncope and collapse; K59.00 Constipation, unspecified; Z80.0 Family history of malignant neoplasm of digestive organs; Z82.49 Family history of ischemic heart disease and other diseases of the circulatory system; Z85.46 Personal history of malignant neoplasm of prostate; Z90.79 Acquired absence of other genital organ(s); Z95.1 Presence of aortocoronary bypass graft
CPT/HCPCS: 36600; 70450; 71045; 71046; 72132; 80047; 80048; 80048 91; 80053; 80202; 81003; 82140; 82248; 82550; 82803; 82948; 83605; 83690; 83735; 84100; 84484; 84520; 85025; 85025 91; 85027; 85610; 85730; 87040; 87070; 87075; 87086; 87205; 87801; 92526 GN; 92610 GN; 93005; 95819; 99281; 99285; C1769; J0610; J1644; J2310; J2405; J2543; J3370; J3475; J3480; J7030; J7050; Q0167

== ENCOUNTER 2018-03-28 23:37 | Inpatient (IN) | payer OTHER, MEDICARE ==
[~2018-03-28] VITALS: Ht 165.1 cm; Wt 66.4 kg
[~2018-03-28 23:37] MED LIST changes: +CYANOCOBAL1000 MCG/2 IM; +DRONABINOL2.5 MG PO; +FOLIC ACID1 MG PO; +MAG-OXIDE400 MG PO; +MELATONIN1 MG PO; +OMEPRAZOLE20 M2 PO; +ONDANSETRON HCL4 MG PO; +TRAZODONE HCL50 MG PO; +ZYVOX600 MG PO
[2018-03-28 23:58] LABS: APPEARANCE CLOUDY ((CLEAR)); BILIRUBIN NEGATIVE; BLOOD LARGE; COLOR YELLOW ((YELLOW)); GLUCOSE (STRIP) NEGATIVE; KETONES NEGATIVE; LEUKOCYTES LARGE; NITRITE NEGATIVE; PROTEIN (STRIP) 100; SPECIFIC GRAVITY 1.017 (1.000-1.030); UROBILINOGEN 0.2 MG/DL (0.2-1.0)
[2018-03-29 00:10] LABS: BACTERIA RARE /HPF; EPITHELIAL CELLS NONE SEEN /HPF; HYALINE CASTS 0-5 /LPF; MUCUS 1+ /LPF; RED BLOOD CELLS TNTC /HPF (0-5); UCUL ADDED? YES; WHITE BLOOD CELLS TNTC /HPF (0-5)
[2018-03-29 00:27] LABS: BASOPHIL (%) 0.2 % (0-1); EOSINOPHIL (%) 0.7 % (0-5); EOSINOPHIL COUNT 0.1 K/uL (0-0.3); HEMATOCRIT 41.2 % (38.0-50.0); HEMOGLOBIN 13.7 G/DL (12.5-16.6); IMMATURE GRANULOCYTE (%) 0.4 % (0.0-0.7); LYMPHOCYTE (%) 9.6 % (15-42); LYMPHOCYTE COUNT 1.3 K/uL (1.0-2.8); MCH 28.8 PG (29.0-34.0); MCHC 33.3 G/DL (30.0-36.0); MCV 86.7 FL (86-99); MONOCYTE (%) 5.6 % (3-12); MONOCYTE COUNT 0.8 K/uL (0-0.8); NEUTROPHIL (%) 83.5 % (45-76); NEUTROPHIL COUNT 11.4 K/uL (1.8-6.4); PLATELET COUNT 289 K/uL (156-360); RBC DIS.WIDTH-CV 13.9 % (11.8-14.6); RBC DIS.WIDTH-SD 44.3 % (39-53); RED BLOOD COUNT 4.75 M/uL (4.00-5.50); WHITE BLOOD COUNT 13.7 K/uL (4.1-10.2)
[2018-03-29 00:34] LABS: ALBUMIN 3.8 g/dL (3.2-4.8)
[2018-03-29 00:35] LABS: CHLORIDE 108 mEq/L (99-109); POTASSIUM 3.9 mEq/L (3.7-5.4); SODIUM 143 mEq/L (136-147)
[2018-03-29 00:37] LABS: GLUCOSE 150 mg/dL (70-99); TOTAL PROTEIN 6.8 g/dL (6.4-8.3)
[2018-03-29 00:39] LABS: TOTAL BILIRUBIN 0.3 mg/dL (0.0-1.0)
[2018-03-29 00:40] LABS: ALKALINE PHOSPHATASE 103 IU/L (3-129)
[2018-03-29 00:41] LABS: CREATININE 0.7 mg/dL (0.6-1.3); GFR ESTIMATE (CALCULATED) > 59 mL/min/ (58.99-99999)
[2018-03-29 00:42] LABS: AST (GOT) 15 IU/L (2-34); UREA NITROGEN (BUN) 14 mg/dL (9-23)
[2018-03-29 00:43] LABS: ALT (GPT) 11 IU/L (3-49)
[2018-03-29 00:44] LABS: LIPASE 13 U/L (1.0-51.0)
[2018-03-29 07:10] VITALS: BP 145/68
[2018-03-29 16:10] VITALS: BP 140/74
[2018-03-29 21:59] VITALS: BP 153/75
[2018-03-29 22:32] VITALS: BP 153/75
[2018-03-30 06:00] LABS: HEMATOCRIT 39.1 % (38.0-50.0); HEMOGLOBIN 12.9 G/DL (12.5-16.6); MCH 28.7 PG (29.0-34.0); MCV 87.1 FL (86-99); PLATELET COUNT 262 K/uL (156-360); RBC DIS.WIDTH-SD 45.2 % (39-53); RED BLOOD COUNT 4.49 M/uL (4.00-5.50); WHITE BLOOD COUNT 9.4 K/uL (4.1-10.2)
[2018-03-30 06:28] LABS: CHLORIDE 105 MEQ/L (99-109); CREATININE 0.7 MG/DL (0.6-1.3); GFR ESTIMATE (CALCULATED) > 59 mL/min/ (58.99-99999); POTASSIUM 3.6 MEQ/L (3.7-5.4); SODIUM 142 MEQ/L (136-147); UREA NITROGEN (BUN) 11 mg/dL (9-23)
[2018-03-30 06:34] LABS: GLUCOSE 102 mg/dL (70-99)
[2018-03-30 07:15] VITALS: BP 146/70
[2018-03-30 23:41] VITALS: BP 113/66
[2018-03-31 06:19] LABS: CHLORIDE 105 MEQ/L (99-109); CREATININE 0.8 MG/DL (0.6-1.3); GFR ESTIMATE (CALCULATED) > 59 mL/min/ (58.99-99999); GLUCOSE 99 mg/dL (70-99); SODIUM 143 MEQ/L (136-147); UREA NITROGEN (BUN) 14 mg/dL (9-23)
[2018-03-31 08:04] VITALS: BP 121/58
[2018-03-31 15:45] VITALS: BP 123/64
[2018-03-31 16:23] VITALS: BP 123/64
[2018-04-01 00:04] VITALS: BP 99/49
[2018-04-01 07:25] VITALS: BP 134/77
[2018-04-01] MEDS ORDERED: LEXAPRO5 MG PO (12:27)
[2018-04-01 15:00] VITALS: BP 128/66
[2018-04-01 21:37] VITALS: BP 138/68
[2018-04-01 23:22] VITALS: BP 149/83
[2018-04-02 07:00] VITALS: BP 117/66
[2018-04-02] MEDS ORDERED: DOCUSATE SODIU100 MG PO (11:43)
== END 2018-04-02 15:48 | disposition home health service (06) | DRG 854 ==
LOC: EME → EDBD 23:37 → EDSEX 23:37 → EME 23:37 → EDOF 03-29 02:44 → CANRESERV 03-29 02:44 → ENRESERV 03-29 02:44 → EDOF 03-29 03:26 → 5EAST 03-29 03:26 → ENRESERV 03-29 03:28 → 5EAST 03-29 04:16
PROVIDERS: Emergency Medicine; Hospitalist; Physician Assistant
PROC: 0JB70ZZ Excision of Back Subcutaneous Tissue and Fascia, Open Approach (ICD-10-PCS; principal; 2018-03-31)
DX: A41.9 Sepsis, unspecified organism (principal); N30.90 Cystitis, unspecified without hematuria; E86.0 Dehydration; K56.41 Fecal impaction; E78.5 Hyperlipidemia, unspecified; K21.9 Gastro-esophageal reflux disease without esophagitis; N10 Acute pyelonephritis; G82.20 Paraplegia, unspecified; L89.150 Pressure ulcer of sacral region, unstageable; I10 Essential (primary) hypertension; E87.6 Hypokalemia; N35.9 Urethral stricture, unspecified; M81.0 Age-related osteoporosis without current pathological fracture; N31.9 Neuromuscular dysfunction of bladder, unspecified; I25.10 Atherosclerotic heart disease of native coronary artery without angina pectoris; E11.51 Type 2 diabetes mellitus with diabetic peripheral angiopathy without gangrene; B96.5 Pseudomonas (aeruginosa) (mallei) (pseudomallei) as the cause of diseases classified elsewhere; Z95.1 Presence of aortocoronary bypass graft; Z98.1 Arthrodesis status; Z74.01 Bed confinement status; Z82.49 Family history of ischemic heart disease and other diseases of the circulatory system; Z79.84 Long term (current) use of oral hypoglycemic drugs; Z80.0 Family history of malignant neoplasm of digestive organs; Z85.46 Personal history of malignant neoplasm of prostate; I25.2 Old myocardial infarction; Z86.73 Personal history of transient ischemic attack (TIA), and cerebral infarction without residual deficits; Z89.412 Acquired absence of left great toe; F41.9 Anxiety disorder, unspecified
CPT/HCPCS: 71045; 74177; 80048; 80053; 81003; 82948; 83605; 83690; 85025; 85027; 87040; 87077; 87086; 87186; 97530 GP; 99281; 99284; A6260; J0692; J0696; J1644; J1815; J2270; J2405; J7030